=== PATIENT | male | born 1940 | race African-American/Black ===

== ENCOUNTER 2016-09-07 09:19 | Emergency (ER) | payer MEDICARE, BC ==
[~2016-09-07] VITALS: Ht 185.4 cm; Wt 82.0 kg
[2016-09-07] MEDS ORDERED: SODIUM CHLORIDE 0.9% 500 ML IV ONE (10:34)
[2016-09-07] MEDS ORDERED: LORAZEPAM 2MG/ML CPJ IV ONE (11:00)
[2016-09-07 11:04] LABS: BASOPHILS % 0.8 % (0.0-2.0); EOSINOPHILS % 2.1 % (0.0-5.0); HEMATOCRIT. 38.9 % (42.0-52.0); HEMOGLOBIN. 12.5 g/dL (14.0-18.0); MEAN CORPUSCULAR HEMOGLOBIN 26.4 pg (28.0-32.0); MEAN CORPUSCULAR VOLUME 82.1 fL (80.0-94.0); MEAN PLATELET VOLUME 6.7 fl (7.4-10.4); MONOCYTES % 6.4 % (2.0-8.0); NEUTROPHILS % 76.7 % (40.0-76.0); PLATELET 285 x1000/uL (130-400); RED BLOOD CELL COUNT 4.74 mill/uL (4.7-6.1); RED CELL DISTRIBUTION WIDTH 15.5 % (11.6-14.6)
[2016-09-07 11:13] LABS: CHLORIDE 102 mEq/L (98-107)
[2016-09-07 11:16] LABS: PARTIAL THROMBOPLASTIN TIME 27.5 sec (24.0-34.0); PROTHROMBIN TIME 10.8 sec
[2016-09-07 11:25] LABS: CARBON DIOXIDE 29 mEq/L (21-32)
[2016-09-07 12:33] LABS: CLARITY URINE CLOUDY (CLEAR); COLOR URINE YELLOW (YELLOW); GLUCOSE URINE NEGATIVE (NEGATIVE); KETONES URINE NEGATIVE (NEGATIVE); LEUKOCYTE ESTERASE URINE 3+ (NEGATIVE); NITRITE URINE POSITIVE (NEGATIVE); OCCULT BLOOD URINE TRACE (NEGATIVE); PH URINE >=9.0 (4.5-8.0); PROTEIN URINE NEGATIVE (NEGATIVE); SPECIFIC GRAVITY URINE 1.005 (1.005-1.030); UROBILINOGEN URINE 0.2 E.U./dL (0.2-1.0)
[2016-09-07 19:23] VITALS: BP 132/72
== END 2016-09-07 20:06 | disposition short-term general hospital (02) ==
LOC: ER 09:19
DX: C61 Malignant neoplasm of prostate (principal); C79.89 Secondary malignant neoplasm of other specified sites; I10 Essential (primary) hypertension; N39.0 Urinary tract infection, site not specified; Z88.3 Allergy status to other anti-infective agents; I77.819 Aortic ectasia, unspecified site
CPT/HCPCS: 36415; 71010; 72146; 72148; 80053; 81001; 83690; 83735; 83880; 85025; 85610; 85730; 87077; 87086; 87186; 93005; 96360; 99291; J7040